=== PATIENT | female | born 1965 ===

== ENCOUNTER 2024-09-16 11:23 | Inpatient (IN) | payer MEDICARE ==
[~2024-09-16] VITALS: Ht 154.9 cm; Wt 93.7 kg
[2024-09-16] VITALS (19 sets, daily range): BP systolic 125–175; BP diastolic 74–139
[2024-09-16 12:01] LABS: BASOPHILS ABSOLUTE AUTO 0.07 K/mm3 (0.00-0.23); BASOPHILS PERCENT AUTO 1 % (0-2); EOSINOPHILS ABSOLUTE AUTO 0.12 K/mm3 (0.00-0.68); EOSINOPHILS PERCENT AUTO 1 % (0-6); Hematocrit 42.4 % (33.0-51.0); IMMATURE GRAN ABSOLUTE AUTO 0.04 K/mm3 (0.00-0.10); IMMATURE GRAN PERCENT AUTO 0 % (0-1); LYMPHOCYTES ABSOLUTE AUTO 3.38 K/mm3 (0.84-5.20); LYMPHOCYTES PERCENT AUTO 30 % (21-46); MONOCYTES ABSOLUTE AUTO 0.99 K/mm3 (0.16-1.47); MONOCYTES PERCENT AUTO 9 % (4-13); Mean Corpuscular HGB 29.9 pg (26.0-34.0); Mean Corpuscular Volume 90 fL (80-100); Mean Platelet Volume 9.6 fL (9.1-12.4); NEUTROPHILS ABSOLUTE AUTO 6.73 K/mm3 (1.96-9.15); NEUTROPHILS PERCENT AUTO 59 % (41-73); Platelet Count 303 K/mm3 (150-400); RDW Coefficient Variation 12.8 % (11.7-14.2); Red Blood Cell Count 4.69 M/mm3 (3.80-5.20); White Blood Cell Count 11.33 K/mm3 (4.00-11.30)
[2024-09-16 12:29] LABS: Albumin, Blood 3.8 g/dL (3.4-5.0); Bilirubin, Total 0.6 mg/dL (0.1-1.0); Bun/Creatinine Ratio 20.9 (12.0-20.0); Calcium, Blood 9.6 mg/dL (8.5-10.1); Creatinine, Blood 0.96 mg/dL (0.40-1.00); Globulin, Blood 3.9 g/dL (2.2-4.0); Potassium, Blood 4.1 mmol/L (3.5-5.5); Total Protein, Blood 7.7 g/dL (6.4-8.2)
[2024-09-16] MEDS ORDERED: Aspirin 81 MG Chew PO ONE (13:15)
[2024-09-16] MEDS ORDERED: Nitroglycerin/D5W 250 ML IV SCH (13:25)
[2024-09-16] MEDS ORDERED: Morphine Sulfate 4 MG/1 ML Injection IV PRN (14:10)
[2024-09-16 14:50] LABS: Anti-Xa UFH, PHA Monitoring <0.10 IU/mL; International Normalized Ratio 0.95; Prothrombin Time Results 10.2 Sec (9.7-11.5)
[2024-09-16] MEDS ORDERED: Dose Adjust by Pharmacy XX STA ×3 (15:14→23:05)
[2024-09-16] MEDS ORDERED: Heparin Sodium,Porcine/0.5 NS 500 ML IV SCH (15:15)
[2024-09-16] MEDS ORDERED: Heparin Sodium 5000 Units/ML 1ML MDV IV ONE (15:15)
[2024-09-16] MEDS ORDERED: CLOP75 PO (15:18)
[2024-09-16] MEDS ORDERED: METO100 PO (15:18)
[2024-09-16] MEDS ORDERED: MONT10T PO (15:18)
[2024-09-16] MEDS ORDERED: ONDA4 PO (15:19)
[2024-09-16] MEDS ORDERED: DESVENLAFAXINE100 MG PO (15:20)
[2024-09-16] MEDS ORDERED: TIZA4 PO (15:20)
[2024-09-16] MEDS ORDERED: ATOR40TA PO (15:20)
[2024-09-16] MEDS ORDERED: Aspir 8181 MG PO (15:21)
[2024-09-16] MEDS ORDERED: LOSA50 PO (15:21)
[2024-09-16] MEDS ORDERED: AMLO5 PO (15:23)
[2024-09-16] MEDS ORDERED: METF500C PO (15:23)
[2024-09-16] MEDS ORDERED: Isosorbide Mono30 MG PO (15:24)
[2024-09-16] MEDS ORDERED: Ondansetron HCl 2 MG / ML 2ML Vial IV PRN (16:10)
--- NOTE | 2024-09-16 17:00 | NUR ---
TOOK OVER CARE AT 1500, NITRO DRIP WAS AT 2.5 MCG/MIN, TITRATED TO 5 MCG/MIN AT 1505, THEN 10MCG/MIN AT 1510. ADMINSITERED HEPARIN BOLUS AND INITIATED HEPARIN DRIP AT 1535. PT IS A/O X4, RECALLS PMH AND VERBALIZES NEEDS. PT REPORTED NAUSEA AND PAIN, ADMINISTERED MORPHINE AND ONDANSETRON AND PATIENT REPORTS IMPROVEMENT. PT RESTING AND WILL CONTINUE WITH PLAN OF CARE.
[2024-09-16] MEDS ORDERED: Insulin Human Lispro 100 Units/ML 3ML Syringe SC SCH (18:00)
--- NOTE | 2024-09-16 18:52 | NUR ---
Pt. is awake in bed. is at bedside. Facilitated a life review. Pt. displayed evidence of being anxious. COnsidered matetrs of ike and belief and encouraged trust and ike. Prayed with the Pt. Will remain available to the Pt. and spouse.
--- NOTE | 2024-09-16 18:56 | NUR ---
RECEIVED PT AT 1500 FROM ED, PT WAS ON NITRO DRIP AND COMPLAINED OF CHEST PAIN RADIATING TO LEFT ARM/AXILLARY. PT HX OF HTN, QUAD BYPASS, AND HEART STENT. PT ON HEPARIN DRIP, NITRO DRIP, ADMINISTERED HEPARIN BOLUS, MORPHINE, AND ONDASENTRON DUE TO NAUSEA. HR >80 AND MAP >65. PT A/O X4, VOCALIZES NEEDS, CALL LIGHT WITHIN REACH. PT ON RA AND O2 >95%. AT 1650 PT REPORTS IMPROVEMENT IN PAIN AND NAUSEA. DID NOT AMBULATE TO BSC AND HAS NOT HAD ANY URINE OUTPUT. WILL REPORT TO ONCOMING NURSE AND CONTINUE PLAN OF CARE.
[2024-09-16] MEDS ORDERED: Pregabalin 75 MG Cap PO SCH (21:00)
[2024-09-16] MEDS ORDERED: Montelukast Sodium 10 MG Tab PO SCH (21:00)
[2024-09-17] VITALS (37 sets, daily range): BP systolic 101–177; BP diastolic 40–133
[2024-09-17 03:38] LABS: BASOPHILS ABSOLUTE AUTO 0.07 K/mm3 (0.00-0.23); BASOPHILS PERCENT AUTO 1 % (0-2); EOSINOPHILS ABSOLUTE AUTO 0.17 K/mm3 (0.00-0.68); EOSINOPHILS PERCENT AUTO 2 % (0-6); Hematocrit 40.7 % (33.0-51.0); Hemoglobin 13.5 g/dL (11.5-16.0); IMMATURE GRAN ABSOLUTE AUTO 0.02 K/mm3 (0.00-0.10); IMMATURE GRAN PERCENT AUTO 0 % (0-1); LYMPHOCYTES ABSOLUTE AUTO 3.56 K/mm3 (0.84-5.20); LYMPHOCYTES PERCENT AUTO 31 % (21-46); MONOCYTES ABSOLUTE AUTO 1.18 K/mm3 (0.16-1.47); MONOCYTES PERCENT AUTO 10 % (4-13); Mean Corpuscular HGB 30.1 pg (26.0-34.0); Mean Corpuscular HGB Conc 33.2 g/dL (31.5-36.5); Mean Corpuscular Volume 91 fL (80-100); Mean Platelet Volume 9.5 fL (9.1-12.4); NEUTROPHILS ABSOLUTE AUTO 6.36 K/mm3 (1.96-9.15); NEUTROPHILS PERCENT AUTO 56 % (41-73); Platelet Count 299 K/mm3 (150-400); RDW Coefficient Variation 12.8 % (11.7-14.2); RDW Standard Deviation 42.4 fL (35.1-46.3); Red Blood Cell Count 4.48 M/mm3 (3.80-5.20); White Blood Cell Count 11.36 K/mm3 (4.00-11.30)
[2024-09-17 03:57] LABS: Albumin, Blood 3.5 g/dL (3.4-5.0); Albumin/Globulin Ratio 0.9 (0.8-1.8); Bilirubin, Total 0.6 mg/dL (0.1-1.0); Bun/Creatinine Ratio 19.7 (12.0-20.0); Calcium, Blood 8.9 mg/dL (8.5-10.1); Creatinine, Blood 0.92 mg/dL (0.40-1.00); Globulin, Blood 3.8 g/dL (2.2-4.0); Potassium, Blood 4.1 mmol/L (3.5-5.5); Total Protein, Blood 7.3 g/dL (6.4-8.2)
[2024-09-17] MEDS ORDERED: Dose Adjust by Pharmacy XX STA (05:11)
--- NOTE | 2024-09-17 05:54 | NUR ---
SHIFT SUMMARY PT HAS NOT HAD ANY OVERNIGHT EVENTS OR SIGNIFICANT CHANGES. 2LPM O2 VIA NC WAS ADMINISTERED DURING THE NIGHT DUE TO PERIODS OF DESAT AND APNEA. IMPROVED WITH OXYGEN. SHE HAS REMAINED ON NITRO AND HEPARIN GTT THROUGHOUT NIGHT. SHE HAS BEEN ABLE TO SLEEP THROUGH MOST OF THE NIGHT BUT WHEN SHE IS AWAKE SHE COMPLAINS OF HEADACHE AND CHEST PAIN. SHE SAID THE CHEST PAIN IS TRANSIENT BUT IS A 7/10 WHEN PRESENT. SHE HAS BEEN ABLE TO GET UP AND AMBULATE TO THE TOILET A FEW TIMES BUT USES A WALKER AND NURSE STANDBY DUE TO SOME DIZZINESS UPON STANDING.
[2024-09-17] MEDS ORDERED: Pantoprazole Sodium 40 MG Tab PO SCH (06:00)
[2024-09-17] MEDS ORDERED: Ezetimibe 10 MG Tab PO SCH (09:00)
[2024-09-17] MEDS ORDERED: Aspirin 81 MG Chew PO SCH (09:00)
[2024-09-17] MEDS ORDERED: Empagliflozin 10 MG TAB PO SCH (09:00)
[2024-09-17] MEDS ORDERED: Venlafaxine HCl 75 MG CapCR PO SCH (09:00)
[2024-09-17] MEDS ORDERED: Metoprolol Succinate 50 MG TABCR PO SCH (09:00)
[2024-09-17] MEDS ORDERED: Losartan Potassium 50 MG Tab PO SCH (09:00)
[2024-09-17] MEDS ORDERED: Atorvastatin 40 MG Tab PO SCH (09:00)
[2024-09-17] MEDS ORDERED: Clopidogrel Bisulfate 75 MG Tab PO SCH (09:00)
[2024-09-17] MEDS ORDERED: AmLODIPine Besylate 5 MG Tab PO SCH (09:00)
[2024-09-17] MEDS ORDERED: Verapamil HCL 2.5 MG/ML 2ML Injection ONE (14:19)
[2024-09-17] MEDS ORDERED: Heparin Sodium 1000 Units/ML 10ML MDV ONE ×2 (14:19→14:21)
[2024-09-17] MEDS ORDERED: Nitroglycerin 2 MG/20 ML BTL ONE (14:20)
[2024-09-17] MEDS ORDERED: NS 250 ML IV ONE (14:20)
[2024-09-17] MEDS ORDERED: NS 1,000 ML IV ONE ×2 (14:20→14:21)
--- NOTE | 2024-09-17 14:28 | NUR ---
AT 1415, DR. ESPITIA ASSESSED PT AND DISCUSSED PLAN OF CARE. PT STATES THAT HER CHEST PAIN IS PALPABLE, "LIKE MY CHEST IS BRUISED." PT STATES PAIN IS CURRENTLY AT A 4 OUT OF 10. PT SHOWS UNDERSTANDING OF PROCEDURE. DR. ESPITIA EXPLAINED THAT THE ANGIOGRAM MAY NOT RELIEVE THE PALPABLE PAIN THAT THE PATIENT IS EXPERIENCING.
[2024-09-17] MEDS ORDERED: Midazolam HCl 1MG / ML 2ML Vial ONE (14:33)
[2024-09-17] MEDS ORDERED: FentaNYL Citrate 50 MCG/ML 2 ML Injection ONE (14:33)
--- NOTE | 2024-09-17 14:42 | NUR ---
AT 1435, [facility] RN TRANSFERRED PATIENT TO PROPERTY INSURANCE AGENT.
--- NOTE | 2024-09-17 16:24 | NUR ---
RECEIVED PT AT 1555, PT AWAKE, HEPARIN DRIP IS NO LONGER INFUSING, AND NITRO DRIP REMAINS AT 20. ELEVATED HOB TO 30 DEGREES. HEATING PAD APPLIED TO LEFT ANTERIOR CHEST AND SHOULDER. AWAITING FURTHER ORDERS FROM DR. ESPITIA.
--- NOTE | 2024-09-17 18:41 | NUR ---
SHIFT SUMMARY: PT IS A/O X4, VOCALIZES NEEDS, AND CALL LIGHT IS WITHIN REACH. PT STARTED SHIFT ON HEPARIN AND NITROGLYCERIN DRIP. TITRATED PT DOWN ON NITRO DUE TO SBP<[address] LENZ ASSESSED THE PT AND SUSPECTED PERICARDITIS, ANGIOGRAM WAS SCHEDULED. DR ESPITIA HAD A CONVERSATION WTIH THE PATIENT ABOUT THE ANGIOGRAM AND STATED THAT THE PROCEDURE MAY NOT RELIEVE HER PALPABLE CHEST PAIN. PT STATES "IT FEELS LIKE I HAVE A BRUISE ON MY CHEST." SBP <150 FOR DURATION OF SHIFT AND HR 70S-90S. COMPLAINTS OF CHEST PAIN RADIATING TO LEFT ARM AND AXILLARY HAVE CONTINUED THROUGHOUT SHIFT. STOPPED INFUSING HEPARIN WHEN SUSTAINABILITY COMMUNICATOR ARRIVED TO TRANSFER PT AT 1435. PT RETURNED TO ICU AT 1555, PT DROWSY BUT APPROPRIATE. AT 1630, DR. ESPITIA DISCUSSED PROCEDURE WITH PT, TITRATING NITROGLYCERIN DOWN TO DC PER DR. ESPITIA'S ORDERS. PT IS EMOTIONAL AND ANXIOUS ABOUT HER HEART HEALTH. O2 IS >92% ON RA WHILE PT IS AWAKE. PT DROPS DOWN TO LOW 80S WHEN SLEEPING, PLACED 2L VIA NC ON PT WHILE SLEEPING O2 >95%. PT AMBULATES TO TOILET WITH WALKER, NURSE PRESENT BECAUSE PT REPORTS DIZZINESS. BLOOD GLUCOSE <230 FOR DURATION OF SHIFT. PT IS PLEASANT WITH STAFF. WILL REPORT TO ONCOMING NURSE AND CONTINUE WITH PLAN OF CARE.
[2024-09-17] MEDS ORDERED: Metoprolol Tartrate 50 MG Tab PO SCH (19:00)
[2024-09-17] MEDS ORDERED: Aspirin 325 MG Tab PO SCH (19:00)
[2024-09-17] MEDS ORDERED: Colchicine 0.6 MG TAB PO SCH (19:00)
[2024-09-17 19:59] LABS: C-REACTIVE PROTEIN, EXT RANGE 7.07 mg/dL (0.000-0.300)
[2024-09-17 20:00] LABS: C-Reactive Protein, High Sens. 68.3 mg/L (0.000-3.000)
[2024-09-18] VITALS (12 sets, daily range): BP systolic 88–180; BP diastolic 59–159
[2024-09-18 03:37] LABS: BASOPHILS ABSOLUTE AUTO 0.05 K/mm3 (0.00-0.23); BASOPHILS PERCENT AUTO 1 % (0-2); EOSINOPHILS ABSOLUTE AUTO 0.11 K/mm3 (0.00-0.68); EOSINOPHILS PERCENT AUTO 1 % (0-6); Hematocrit 40.1 % (33.0-51.0); IMMATURE GRAN ABSOLUTE AUTO 0.02 K/mm3 (0.00-0.10); IMMATURE GRAN PERCENT AUTO 0 % (0-1); LYMPHOCYTES PERCENT AUTO 37 % (21-46); MONOCYTES ABSOLUTE AUTO 0.98 K/mm3 (0.16-1.47); MONOCYTES PERCENT AUTO 11 % (4-13); Mean Corpuscular HGB 30.2 pg (26.0-34.0); Mean Corpuscular HGB Conc 32.4 g/dL (31.5-36.5); Mean Corpuscular Volume 93 fL (80-100); Mean Platelet Volume 9.6 fL (9.1-12.4); NEUTROPHILS ABSOLUTE AUTO 4.36 K/mm3 (1.96-9.15); NEUTROPHILS PERCENT AUTO 50 % (41-73); Platelet Count 271 K/mm3 (150-400); RDW Coefficient Variation 12.8 % (11.7-14.2); RDW Standard Deviation 43.8 fL (35.1-46.3); White Blood Cell Count 8.72 K/mm3 (4.00-11.30)
[2024-09-18 04:23] LABS: Bun/Creatinine Ratio 16.2 (12.0-20.0); Calcium, Blood 8.9 mg/dL (8.5-10.1); Creatinine, Blood 1.05 mg/dL (0.40-1.00); Potassium, Blood 4.2 mmol/L (3.5-5.5)
--- NOTE | 2024-09-18 05:32 | NUR ---
SHIFT SUMMARY: NO OVERNIGHT EVENTS. PT HAS BEEN PLEASANT, LESS TEARFUL AND ANXIOUS THIS SHIFT. CHEST PAIN AND HEADACHE PERSISTS, NITRO GTT IS OFF AND MANAGING PAIN WITH OTHER MEDICATION NOW. PT HAS STILL BEEN ABLE TO GET UP WITH THE WALKER TO GO TO THE BATHROOM. DIZZINESS HAS IMPROVED SINCE THE NITRO HAS BEEN OFF. PT ATTEMPTED TO WEAR CPAP FOR SLEEP, BUT GOT NAUSEATED AND TOOK IT OFF. SHE WORE A NC WITHOUT ISSUE. HR AND BP STABLE THROUGHOUT SHIFT.
[2024-09-18] MEDS ORDERED: Acetaminophen 325 MG TABLET PO PRN (08:05)
--- NOTE | 2024-09-18 09:23 | NUR ---
SPONTANEOUS AWAKENING TRIAL PERFORMED WHILE AM CARE COMPLETED, PT DID NOT FOLLOW COMMANDS, WAS ABLE TO MOVE ALL EXTREMITIES, WOULDN'T OPEN HER EYES. HEAD MOVING AND FINGERS AND TOES WIGGLING, ARMS BENDING, ANKLES CIRCLING. PT RETURNED TO SEDATION AT 25MCG OF PROPOFOL. TOLERATING VENTILATOR WITH AC/PC MODE, RATE 10, PRESSURE 10, PEEP 5, 30%.
--- NOTE | 2024-09-18 10:30 | NUR ---
Pt. is awke and welcomes my visit. Pt. is pleasant, and displays evidence of being alert and engaged. Facilitated a edyta life review that spanned topics of health, family, ike and belief. Pt. displayed evidence of being encouraged and verbally requested information regarding a local latter day. Prayed with Pt. and provided Pt. with a website that will help her pursue a local latter day. Pt. verbalized gratitude for the spiritual care visit.
[2024-09-18] MEDS ORDERED: Aspirin325 MG PO (11:43)
[2024-09-18] MEDS ORDERED: ACET325 PO (11:46)
[2024-09-18] MEDS ORDERED: COLCHICINE0.6 MG PO (11:47)
[2024-09-18] MEDS ORDERED: JARDIANCE10 MG PO (11:49)
[2024-09-18] MEDS ORDERED: EZET10 PO (11:49)
[2024-09-18] MEDS ORDERED: PANT40 PO (11:50)
[2024-09-18] MEDS ORDERED: PREG75 PO (11:51)
--- NOTE | 2024-09-18 13:22 | NUR ---
DISCHARGE INSTRUCTIONS GIVEN, QUESTIONS ANSWERED AND DISCUSSED. AND PT HAS CONCERN FOR THE COST OF THE JARDIANCE. ENCOURAGED TO TRY TO TAKE THAT MEDICATION IT IS FOR HER HEART, DISCUSSED ASSISTANCE AND [facility] REGINALDO. PT'S IV'S DC'D. ASSISTANCE GETTING DRESSED.
--- NOTE | 2024-09-18 14:25 | NUR ---
PROVIDED DISCHARGE INFORMATION TO PT AND , GATHERED ALL BELONGINGS, AND TRANSFERRED PT VIA WHEELCHAIR TO CAR DRIVEN BY HER .
[2024-09-18] MEDS ORDERED: Colchicine 0.6 MG TAB PO SCH (18:00)
== END 2024-09-18 10:47 | disposition home or self-care (01) | DRG 282 ==
LOC: ER 11:23 → ICUE 14:06
PROVIDERS: Emergency Medicine; Student in an Organized Health Care Education/Training Program; ADMIT Internal Medicine
PROC: B2111ZZ Fluoroscopy of Multiple Coronary Arteries using Low Osmolar Contrast (ICD-10-PCS; principal; 2024-09-17)
PROC: B2131ZZ Fluoroscopy of Multiple Coronary Artery Bypass Grafts using Low Osmolar Contrast (ICD-10-PCS; 2024-09-17)
PROC: 4A023N7 Measurement of Cardiac Sampling and Pressure, Left Heart, Percutaneous Approach (ICD-10-PCS; 2024-09-17)
DX: I21.4 Non-ST elevation (NSTEMI) myocardial infarction (principal); E78.00 Pure hypercholesterolemia, unspecified; I25.10 Atherosclerotic heart disease of native coronary artery without angina pectoris; F41.9 Anxiety disorder, unspecified; F32.A Depression, unspecified; I11.9 Hypertensive heart disease without heart failure; E11.22 Type 2 diabetes mellitus with diabetic chronic kidney disease; I12.9 Hypertensive chronic kidney disease with stage 1 through stage 4 chronic kidney disease, or unspecified chronic kidney disease; N18.31 Chronic kidney disease, stage 3a; E66.9 Obesity, unspecified; J45.909 Unspecified asthma, uncomplicated; E11.42 Type 2 diabetes mellitus with diabetic polyneuropathy; E78.5 Hyperlipidemia, unspecified; R10.13 Epigastric pain; R51.9 Headache, unspecified; G47.33 Obstructive sleep apnea (adult) (pediatric); Z68.38 Body mass index [BMI] 38.0-38.9, adult; Z98.51 Tubal ligation status; Z95.5 Presence of coronary angioplasty implant and graft; Z95.1 Presence of aortocoronary bypass graft
CPT/HCPCS: 36415; 71046; 76937; 80048; 80053; 82947; 84484; 85025; 85347; 85520; 85610; 85730; 86140; 86141; 93005; 93010; 93459; 94660; 94762; 96365; 99152; 99153; 99285-25; A9270; C1760; C1769; C1894; C8929; J1644; J2250; J2270; J2405; J3010; J7030; J7050; Q9957; Q9967

== ENCOUNTER → 2024-11-24 | Outpatient (CLI) | payer MEDICARE ==
[~2024-11-24] MED LIST: ACET325 PO; AMLO5 PO; ATOR40TA PO; Aspir 8181 MG PO; Aspirin325 MG PO; CLOP75 PO; COLCHICINE0.6 MG PO; DESVENLAFAXINE100 MG PO; EZET10 PO; Isosorbide Mono30 MG PO; JARDIANCE10 MG PO; LOSA50 PO; METF500C PO; METO100 PO; MONT10T PO; ONDA4 PO; PANT40 PO; PREG75 PO; TIZA4 PO
[2024-11-25 13:54] LABS: Bacterial Vaginosis PCR Negative (NEGATIVE); Candida glabrata-krusei, PCR NOT DETECTED (NOT DETECT)
[2024-11-25 14:54] LABS: Candida Group, PCR DETECTED (NOT DETECT)
== END ==
LOC: LAB SHORT 17:21 → LAB 17:21
PROVIDERS: Family Medicine
DX: B37.9 Candidiasis, unspecified (principal)
CPT/HCPCS: 81515